=== PATIENT | female | born 1955 | race Two or more races ===

== ENCOUNTER 2024-04-24 09:36 | Outpatient (CLI) | payer OTHER | END 2024-04-24 14:40 | disposition home or self-care (01) | LOC: RAD 09:36 | PROVIDERS: ATTEND Internal Medicine Cardiovascular Disease | DX: N60.11 Diffuse cystic mastopathy of right breast (principal); N60.12 Diffuse cystic mastopathy of left breast; Z12.31 Encounter for screening mammogram for malignant neoplasm of breast; J44.9 Chronic obstructive pulmonary disease, unspecified ==

== ENCOUNTER 2024-04-24 11:28 | Outpatient (CLI) | payer OTHER | END 2024-04-24 11:29 | disposition home or self-care (01) | LOC: NUCLEAR 11:28 | PROVIDERS: ATTEND Internal Medicine Cardiovascular Disease | DX: I10 Essential (primary) hypertension (principal) ==